=== PATIENT | female | born 1980 | race Caucasian/White ===

== ENCOUNTER 2025-03-08 17:24 | Emergency (ER) | payer OTHER ==
[~2025-03-08] VITALS: Ht 177.8 cm; Wt 75.0 kg
[2025-03-08 17:39] VITALS: O2SAT 100
[2025-03-08] MEDS ORDERED: KETOROLAC 15MG/ML VIAL IM ONE (17:45)
[2025-03-08] MEDS ORDERED: ACETAMINOPHEN 325MG TABLET PO ONE (17:45)
[2025-03-08] MEDS ORDERED: CYCL10TA21 MT (17:55)
[2025-03-08] MEDS ORDERED: LIDO700A30 TP (17:55)
[2025-03-08 19:54] VITALS: PULSE 88; TEMP 36.9; O2SAT 100
[2025-03-08 19:57] VITALS: BP 158/90; RESP 19
[2025-03-08] MEDS: ACETAMINOPHEN 325MG TABLET PO SCH (19:57)
[2025-03-08] MEDS: LIDOCAINE 5% PATCH TOP SCH (19:57)
[2025-03-08] MEDS ORDERED: KETOROLAC 15MG/ML VIAL IM SCH (20:00)
== END 2025-03-08 20:02 | disposition home or self-care (01) ==
LOC: ER 17:24
DX: M54.2 Cervicalgia (principal); R51.9 Headache, unspecified; I10 Essential (primary) hypertension; Z91.040 Latex allergy status; V43.52XA Car driver injured in collision with other type car in traffic accident, initial encounter; Y93.89 Activity, other specified; Y92.89 Other specified places as the place of occurrence of the external cause; Y99.8 Other external cause status
CPT/HCPCS: 99284; J1885